=== PATIENT | male | born 1945 | race Caucasian/White ===

== ENCOUNTER 2016-04-21 18:22 | Inpatient (IN) | payer OTHER, MEDICARE ==
[~2016-04-21] VITALS: Ht 180.3 cm; Wt 108.4 kg
[~2016-04-21 18:22] MED LIST: ADVAI250I PO; ALBU8I INH; ATOR20TA42 PO; FLON0.053; LEVEMIR SQ; LORA-474 PO; LOSA25TA31 PO; NORV10TA PO; NOVOINJ3 SQ/IV; PERC5TAB12 PO; PROM25TA5 PO; TAB-TAB PO; TAMS0.4C67 PO; TRAZ100 PO; VENL75TA91 PO; ZOFR4TAB3 SL; ZOLP10TA3 PO
[2016-04-21 18:24] VITALS: BP 123/74; PULSE 110; RESP 14; TEMP 98; O2SAT 97
[2016-04-21 18:50] VITALS: O2SAT 98
--- NOTE | 2016-04-21 18:50 | PD ---
HPI Chief Complaint: Respiratory Symptoms Time Seen by Provider: 18:40 Travel History International Travel<30 days: No Contact w/Intl Traveler<30days: No Traveled to known affect area: No History of Present Illness HPI 70-year-old male with history of lymphoma, COPD, chronic back pain who presents after being sent by his oncologist for bilateral pulmonary embolism. Today the patient underwent CT imaging of the thorax, soft tissue neck, abdomen and pelvis ordered by Dr. Kavon Ramos. CT of the thorax revealed bilateral pulmonary embolism and his oncologist advised that he come here for further evaluation. The patient is denying any chest pain, shortness of breath, proptosis, cough and congestion, abdominal pain, fevers or chills, calf swelling , leg swelling or pain. He has never had DVT or PE in the past. No other complaints. His primary care physician is . [facility] Past Medical History Anxiety: Yes Depression: Yes Heart Rhythm Problems: Yes (TACHYCARDIA) Cardiac Catheterization: Yes Cardiovascular Problems: Yes High Cholesterol: Yes COPD: Yes Diabetes: Yes Diminished Hearing: Yes (L EAR LOSS) Genitourinary: Yes (ENLARGED PROSTATE ) Hiatal Hernia: Yes Hypertension: Yes Musculoskeletal: Yes (CHRONIC BACK PAIN ) Reproductive: Yes Respiratory: Yes (COPD) Triglycerides - High: Yes Past Surgical History Other Surgery: Yes (HEMANGIOMA REMOVAL CHILD) Social History Alcohol Use: Yes (OCC) Tobacco Use: No Substance Use: No Allergies-Medications (Allergen,Severity, Reaction): Coded Allergies: No Known Allergies (Verified , 04/21/16) Reported Meds & Prescriptions Reported Meds & Active Scripts Active Reported Glimepiride 1 Mg Tab 1 Mg PO DAILY Take with breakfast or first main meal Losartan (Losartan Potassium) 50 Mg Tab 50 Mg PO DAILY Janumet (Sitagliptin-Metformin) 50-1,000 Mg Tab 1 Tab PO BID Take with meals Atorvastatin (Atorvastatin Calcium) 20 Mg Tab 20 Mg PO HS Trazodone (Trazodone HCl) 100 Mg Tab 300 Mg PO HS Effexor (Venlafaxine HCl) 75 Mg Tab 75 Mg PO TID Novolog Flexpen Inj (Insulin Aspart) 300 Unit/3 Ml Pen SQ TIDAC Tramadol (Tramadol HCl) 50 Mg Tab 50 Mg PO Q8H PRN Alprazolam 2 Mg Tab 2 Mg PO TID Review of Systems Except as stated in HPI: all other systems reviewed are Neg Physical Exam Narrative GENERAL: Well-nourished male in no acute distress. Mildly tachycardic. SKIN: Warm and dry. HEAD: Atraumatic. Normocephalic. EYES: Pupils equal and round. No scleral icterus. No injection or drainage. ENT: No nasal bleeding or discharge. Mucous membranes pink and moist. NECK: Trachea midline. No JVD. CARDIOVASCULAR: Regular rate and rhythm. No murmur appreciated. RESPIRATORY: No accessory muscle use. Clear to auscultation. Breath sounds equal bilaterally. GASTROINTESTINAL: Abdomen soft, non-tender, nondistended. Hepatic and splenic margins not palpable. MUSCULOSKELETAL: No obvious deformities. No edema. Calf or thigh tenderness. NEUROLOGICAL: Awake and alert. No obvious cranial nerve deficits. Motor grossly within normal limits. Normal speech. PSYCHIATRIC: Appropriate mood and affect; insight and judgment normal. Data Data Last Documented VS Vital Signs Date Time Temp Pulse Resp B/P Pulse Ox O2 Delivery O2 Flow Rate FiO2 04/21/16 18:50 98 Room Air 04/21/16 18:45 96 18 04/21/16 18:24 98.0 123/74 Orders Electrocardiogram (04/21/16 18:47) Basic Metabolic Panel (Bmp) (04/21/16 18:47) Complete Blood Count With Diff (04/21/16 18:47) Magnesium (Mg) (04/21/16 18:47) Prothrombin Time / Inr (Pt) (04/21/16 18:47) Act Partial Throm Time (Ptt) (04/21/16 18:47) Ecg Monitoring (04/21/16 18:47) Bilateral Bp Monitoring (04/21/16 18:47) Iv Access Insert/Monitor (04/21/16 18:47) Oximetry (04/21/16 18:47) Heparin Infusion [id number].Q1H (04/21/16 19:03) Heparin Inj (Heparin Inj) (04/21/16 19:15) Heparin Inj (Heparin Inj) (04/22/16 01:15) Heparin Inj (Heparin Inj) (04/22/16 01:15) Heparin-D5w Inj (Heparin-D5w Inj) (04/21/16 19:15) Act Partial Throm Time (Ptt) (04/21/16 19:03) Cbc No Diff, Includes Plts (04/21/16 19:03) Cbc No Diff, Includes Plts (04/24/16 06:00) Act Partial Throm Time (Ptt) (04/22/16 02:03) Occult Blood (Hemoccult) Stool (04/21/16 19:03) Admit Order (Ed Use Only) (04/21/16 19:27) Labs Laboratory Tests Test 04/21/16 18:59 White Blood Count 10.1 TH/MM3 Red Blood Count 3.95 MIL/MM3 Hemoglobin 12.4 GM/DL Hematocrit 36.6 % Mean Corpuscular Volume 92.6 FL Mean Corpuscular Hemoglobin 31.3 PG Mean Corpuscular Hemoglobin 33.8 % Concent Red Cell Distribution Width 13.7 % Platelet Count 160 TH/MM3 Mean Platelet Volume 7.7 FL Neutrophils (%) (Auto) 76.2 % Lymphocytes (%) (Auto) 14.6 % Monocytes (%) (Auto) 5.4 % Eosinophils (%) (Auto) 3.4 % Basophils (%) (Auto) 0.4 % Neutrophils # (Auto) 7.7 TH/MM3 Lymphocytes # (Auto) 1.5 TH/MM3 Monocytes # (Auto) 0.6 TH/MM3 Eosinophils # (Auto) 0.3 TH/MM3 Basophils # (Auto) 0.0 TH/MM3 CBC Comment DIFF FINAL Differential Comment Prothrombin Time 12.8 SEC Prothromb Time International 1.2 RATIO Ratio Activated Partial 24.4 SEC Thromboplast Time Sodium Level 136 MEQ/L Potassium Level 3.6 MEQ/L Chloride Level 98 MEQ/L Carbon Dioxide Level 29.3 MEQ/L Anion Gap 9 MEQ/L Blood Urea Nitrogen 8 MG/DL Creatinine 1.01 MG/DL Estimat Glomerular Filtration 73 ML/MIN Rate Random Glucose 175 MG/DL Calcium Level 8.2 MG/DL Magnesium Level 1.6 MG/DL [facility] Medical Decision Making Medical Screen Exam Complete: Yes Emergency Medical Condition: Yes Medical Record Reviewed: Yes Differential Diagnosis Pulmonary embolism, lymphoma, COPD Narrative Course 70-year-old male was sent here because CT of the thorax incidentally reveals bilateral pulmonary embolism. CT of the thorax reveals that there are filling defects in the left lower lobe pulmonary arteries, right middle lobe pulmonary arteries and right lower lobe pulmonary arteries. He denies any recent bleeding , hematochezia, hemoptysis, melena, hematemesis. Therefore the patient will be started on heparin, he was given a loading dose 80 units per kilogram. He will be admitted to the hospitalist group. Discussed with Dr. Hassan who agrees to admit the patient. Procedures EKG Prior to Arrival: Yes Diagnosis Primary Impression: Pulmonary embolism Qualified Code: I26.99 - Other pulmonary embolism without acute cor pulmonale , unspecified chronicity Admitting Information Admitting Physician Requests: Admit Homero Purvis Apr 21, 2016 18:50
[2016-04-21] MEDS ORDERED: HEPARIN SODIUM - IV 10,000 UNITS/10 ML VIAL IV ONE (19:15)
[2016-04-21] MEDS ORDERED: JANU50TA8 PO (19:21)
[2016-04-21] MEDS ORDERED: NOVOINJ3 SQ (19:21)
[2016-04-21] MEDS ORDERED: TRAZ100T4 PO (19:21)
[2016-04-21] MEDS ORDERED: ATOR20TA15 PO (19:21)
[2016-04-21] MEDS ORDERED: ALPR2TAB3 PO (19:21)
[2016-04-21] MEDS ORDERED: LOSA50TA PO (19:21)
[2016-04-21] MEDS ORDERED: VENL75TA PO (19:21)
[2016-04-21] MEDS ORDERED: TRAM50TA PO (19:21)
[2016-04-21] MEDS ORDERED: GLIM1TAB PO (19:21)
[2016-04-21 19:33] LABS: AUTOMATED NEUTROPHIL # 7.7 TH/MM3 (1.8-7.7); BASOPHIL % 0.4 % (0.0-2.0); EOSINOPHIL # 0.3 TH/MM3 (0-0.4); EOSINOPHIL % 3.4 % (0.0-4.0); HEMATOCRIT 36.6 % (39.0-51.0); HEMO FLAGS DIFF FINAL; LYMPH % 14.6 % (9.0-44.0); LYMPHOCYTE # 1.5 TH/MM3 (1.0-4.8); MEAN CELL VOLUME 92.6 FL (80.0-100.0); MEAN CORPUSCULAR HEMOGLOBIN 31.3 PG (27.0-34.0); MEAN CORPUSCULAR HGB CONC 33.8 % (32.0-36.0); MONO % 5.4 % (0.0-8.0); NEUT % 76.2 % (16.0-70.0); PLATELET COUNT 160 TH/MM3 (150-450); RED BLOOD COUNT 3.95 MIL/MM3 (4.50-5.90); RED CELL DISTRIBUTION WIDTH 13.7 % (11.6-17.2); WHITE BLOOD COUNT 10.1 TH/MM3 (4.0-11.0)
[2016-04-21 19:38] LABS: APTT (PATIENT) 24.4 SEC (24.3-30.1); INTERNATIONAL NORMALIZED RATIO 1.2 RATIO; PROTHROMBIN TIME - PATIENT 12.8 SEC (9.8-11.6)
[2016-04-21] MEDS ORDERED: ONDANSETRON HCL 4 MG/2 ML VIAL IVP PRN (19:45)
[2016-04-21] MEDS ORDERED: SODIUM CHLORIDE 0.9% FLUSH 5 ML FLUSH FLUSH PRN (19:45)
[2016-04-21] MEDS ORDERED: NALOXONE HCL 0.4 MG/ML AMP IV PRN (19:45)
[2016-04-21] MEDS ORDERED: traMADol HCL 50 MG TAB PO PRN (19:45)
[2016-04-21 19:52] LABS: BICARBONATE 29.3 MEQ/L (21.0-32.0); MAGNESIUM 1.6 MG/DL (1.5-2.5); POTASSIUM 3.6 MEQ/L (3.5-5.1)
[2016-04-21] MEDS ORDERED: DEXTROSE 50% IN WATER 50 ML VIAL(D50) IV PUSH PRN (20:00)
[2016-04-21] MEDS ORDERED: GLUCAGON 1 MG/ML VIAL OTHER PRN (20:00)
[2016-04-21] MEDS: HEPARIN-D5W INJ 250 ML IV SCH (20:25)
[2016-04-21] MEDS: SODIUM CHLORIDE 0.9% FLUSH 5 ML FLUSH FLUSH SCH (21:00)
[2016-04-21] MEDS: INSULIN ASPART SUPPLEMENTAL SCALE SQ SCH (21:27)
[2016-04-21] MEDS: traZODone HCL 100 MG TAB PO SCH (21:27)
[2016-04-21] MEDS: ATORVASTATIN 20 MG TAB PO SCH (21:27)
[2016-04-21 21:29] VITALS: BP 154/74; PULSE 80; RESP 16; O2SAT 98
[2016-04-21 22:00] VITALS: BP 132/78; PULSE 94; RESP 18; TEMP 97; O2SAT 96
--- NOTE | 2016-04-21 22:58 | HHI.HP ---
[facility] Service [facility] Primary Care Physician Lemuel Friedman MD Admission Diagnosis Bilateral pulmonary embolism Diagnoses: (1) Pulmonary embolism (2) Non-Hodgkin lymphoma (3) Anemia (4) Type 2 diabetes mellitus (5) Diarrhea Chief Complaint: abnormal chest CT; bilateral PEs Travel History International Travel<30 Days: No Contact w/Intl Traveler <30 Da: No Traveled to Known Affected Are: No History of Present Illness Mr. Spencer is a 70-year-old male patient of Dr. Ramos, oncologist, who has a a history of non-Hodgkins B-cell lymphoma, COPD, chronic back pain, and diabetes mellitus who presented to the emergency room on 04/21/[address] performed by his oncologist as an outpatient which revealed bilateral pulmonary embolism. The patient is seen in his hospital room. He states he had a CT of his chest performed at [place] [facility] to look follow-up on lymphoma and the radiologist from [place] called back and told him to come to the emergency room because of the blood clots in his lungs. Patient denies any chest pain, shortness of breath, palpitations, syncope, dizziness, abdominal pain, melena, hematochezia, hematuria, dysuria but complained of diarrhea for the past few weeks occurring about 3-4 times per day. He was hospitalized recently at [facility]. He states this was about a month ago after a fall at home in which she was down on the ground for at least 3 hours. His last chemotherapy treatment was in January and his last dose of radiation was in the beginning of February. He denies any history of DVT , CVA, seizure, CAD, CHF, liver or kidney problems. He denies thyroid dysfunction. 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 Camara) and chemotherapy Anxiety Depression Hyperlipidemia COPD Type 2 diabetes mellitus Left ear hearing loss Benign prostatic hypertrophy Hypertension Chronic back pain disabled > 15 years ago because of this COPD Hypertriglyceridemia Radiation treatment to right groin as a child for hemangioma . Past Surgical History Hemangioma removal as a child- right groin 1947 Sinus surgery 1994 Biopsy in 2015 Port placement 2014 Colonoscopy 2012 . Reported Medications Reported Meds & Active Scripts Active Reported Glimepiride 1 Mg Tab 1 Mg PO DAILY Take with breakfast or first main meal Losartan (Losartan Potassium) 50 Mg Tab 50 Mg PO DAILY Janumet (Sitagliptin-Metformin) 50-1,000 Mg Tab 1 Tab PO BID Take with meals Atorvastatin (Atorvastatin Calcium) 20 Mg Tab 20 Mg PO HS Trazodone (Trazodone HCl) 100 Mg Tab 300 Mg PO HS Effexor (Venlafaxine HCl) 75 Mg Tab 75 Mg PO TID Novolog Flexpen Inj (Insulin Aspart) 300 Unit/3 Ml Pen SQ TIDAC Tramadol (Tramadol HCl) 50 Mg Tab 50 Mg PO Q8H PRN Alprazolam 2 Mg Tab 2 Mg PO TID . Allergies: Coded Allergies: No Known Allergies (Verified , 04/21/16) Active Ordered Medications Current Medications Heparin Sodium (Porcine) (Heparin Inj) 8,000 units ONCE ONCE IV Last administered on 04/21/16t 20:24; Start 04/21/16 at 19:15; Stop 04/21/16 at 19:16; Status DC Heparin Sodium (Porcine) (Heparin Inj) 5,000 units UNSCH PRN IV APTT LESS THAN 25; Start 04/22/16 at 01:15 Heparin Sodium (Porcine) 2500 units 2,500 units UNSCH PRN IV APTT 25 TO 39; Start 04/22/16 at 01:15 Heparin Sodium/ Dextrose (Heparin-D5W Inj) 250 ml @ 0 mls/hr TITRATE IV Last administered on 04/21/16t 20:25; Start 04/21/16 at 19:15 IV Flush (NS Flush) 2 ml UNSCH PRN FLUSH FLUSH AFTER USING IV ACCESS; Start 04/21/16 at 19:45 IV Flush (NS Flush) 2 ml BID FLUSH ; Start 04/21/16 at 21:00 Ondansetron HCl (Zofran Inj) 4 mg Q6H PRN IVP NAUSEA OR VOMITING; Start at 19:45 Naloxone HCl (Narcan Inj) 0.4 mg UNSCH PRN IV SEE LABEL COMMENTS; Start at 19:45 Alprazolam (Xanax) 2 mg TID PO ; Start 04/22/16 at 09:00 Atorvastatin Calcium (Lipitor) 20 mg HS PO Last administered on 04/21/16 21:27 ; Start 04/21/16 at 21:00 Losartan Potassium (Cozaar) 50 mg DAILY PO ; Start 04/22/16 at 09:00 Tramadol HCl (Ultram) 50 mg Q8H PRN PO PAIN SCALE 1 TO 10; Start 04/21/16 at 19: 45 Trazodone HCl (Desyrel) 300 mg HS PO Last administered on 04/21/16 21:27; Start 04/21/16 at 21:00 Venlafaxine HCl (Effexor Xr) 225 mg DAILY PO ; Start 04/22/16 at 09:00 Dextrose (D50w (Vial) Inj) 25 ml UNSCH PRN IV PUSH HYPOGLYCEMIA-SEE COMMENTS; Start 04/21/16 at 20:00 Glucagon (Glucagon Inj) 1 mg UNSCH PRN OTHER HYPOGLYCEMIA-SEE COMMENTS; Start 04/21/16 at 20:00 Insulin Aspart (NovoLOG SUPPLEMENTAL SCALE) 1 ACHS SLIDING SCALE SQ Last administered on 04/21/16 21:27; Start 04/21/16 at 21:00 . Family History Patient was adopted and has no history related to his parents He has 2 children: daughter had asthma as a child; son is alive and healthy . Social History Tobacco: Smoked 1 PPD for 50 years and quit 4 years ago Alcohol: Occasional Illicit Drugs: Denies . Physical Exam Vital Signs Vital Signs Date Time Temp Pulse Resp B/P Pulse Ox O2 Delivery O2 Flow Rate FiO2 04/21/16 22:00 97.0 94 18 132/78 96 04/21/16 21:29 80 16 154/74 98 Room Air 04/21/16 18:50 98 Room Air 04/21/16 18:45 96 18 96 Room Air 04/21/16 18:24 98.0 110 14 123/74 97 Physical Exam GENERAL: This is a pleasant male patient, in no apparent distress. SKIN: No rashes, ecchymoses or lesions. Cool and dry. HEAD: Atraumatic. Normocephalic. EYES: No scleral icterus. No injection or drainage. ENT: Nose without bleeding, purulent drainage. NECK: Trachea midline. No JVD or lymphadenopathy. CARDIOVASCULAR: Regular rate and rhythm without murmurs, gallops, or rubs. RESPIRATORY: Clear to auscultation. Breath sounds equal bilaterally. No wheezes , rales, or rhonchi. GASTROINTESTINAL: Abdomen soft, non-tender, nondistended. No guarding. MUSCULOSKELETAL: Extremities without clubbing, cyanosis, or edema. No calf tenderness. NEUROLOGICAL: Awake and alert. Motor and sensory grossly within normal limits. Normal speech. . Laboratory Laboratory Tests Test 04/21/16 18:59 White Blood Count 10.1 Red Blood Count 3.95 Hemoglobin 12.4 Hematocrit 36.6 Mean Corpuscular Volume 92.6 Mean Corpuscular Hemoglobin 31.3 Mean Corpuscular Hemoglobin 33.8 Concent Red Cell Distribution Width 13.7 Platelet Count 160 Mean Platelet Volume 7.7 Neutrophils (%) (Auto) 76.2 Lymphocytes (%) (Auto) 14.6 Monocytes (%) (Auto) 5.4 Eosinophils (%) (Auto) 3.4 Basophils (%) (Auto) 0.4 Neutrophils # (Auto) 7.7 Lymphocytes # (Auto) 1.5 Monocytes # (Auto) 0.6 Eosinophils # (Auto) 0.3 Basophils # (Auto) 0.0 CBC Comment DIFF FINAL Differential Comment Prothrombin Time 12.8 Prothromb Time International 1.2 Ratio Activated Partial 24.4 Thromboplast Time Sodium Level 136 Potassium Level 3.6 Chloride Level 98 Carbon Dioxide Level 29.3 Anion Gap 9 Blood Urea Nitrogen 8 Creatinine 1.01 Estimat Glomerular Filtration 73 Rate Random Glucose 175 Calcium Level 8.2 Magnesium Level 1.6 Result Diagram: 04/21/16 1853 04/21/161858 Assessment and Plan Problem List: (1) Pulmonary embolism ICD Code: I26.99 Status: Acute (2) Non-Hodgkin lymphoma ICD Code: C85.90 Status: Chronic (3) Anemia ICD Code: D64.9 Status: Acute (4) Type 2 diabetes mellitus ICD Code: E11.9 Status: Chronic (5) Diarrhea ICD Code: R19.7 Status: Acute Assessment and Plan Mr. Spencer is a 70-year-old male patient of Dr. Ramos, oncologist, who has a a history of non-Hodgkins B-cell lymphoma, COPD, chronic back pain, and diabetes mellitus who presented to the emergency room on 04/21/[address] performed by his oncologist as an outpatient which revealed bilateral pulmonary embolism. Bilateral pulmonary embolism - Started on heparin drip - Continuous cardiac telemetry - Check vital signs every 4 hours - consult oncology, Dr. Ramos Mild Anemia - Admission hemoglobin 12.4 somewhat lower when compared to prior labs - Repeat CBC in a.m. and follow results Type 2 diabetes mellitus - Hold Janumet for now for renal protection in case contrast imaging studies needed - Hold glimepiride for now will manage with sliding scale insulin until glucose trends established - Accu-Cheks before meals and at bedtime with low-dose NovoLog sliding scale coverage - Treatment of hypoglycemia protocol ordered - Follow trends and blood glucose measurements and adjust treatment accordingly Diarrhea with hospitalization one month ago; antibiotic use uncertain - check for c. difficile DVT prophylaxis - Currently on heparin drip Written by Caitlin Garcia, acting as scribe for Dr. Hassan on 04/21/16 at 22:58. All or portions of this note were transcribed by scribe [Caitlin Garcia]. I, Dr. Arslan Hassan personally performed the history, physical exam, and medical decision making; and confirmed the accuracy of the information in the transcribed note. Authenticated by Dr. Arslan Hassan on 04/21/16 at 9580 . Discussed Condition With ER physician, RN, and patient . Physician Certification 2 Midnight Certification Type: Admission for Inpatient Services Order for Inpatient Services The services are ordered in accordance with Medicare regulations or non- Medicare payer requirements, as applicable. In the case of services not specified as inpatient-only, they are appropriately provided as inpatient services in accordance with the 2-midnight benchmark. Estimated LOS (days): 3 days is the estimated time the patient will need to remain in the hospital, assuming treatment plan goals are met and no additional complications. Post-Hospital Plan: Not yet determined Problem Qualifiers (1) Pulmonary embolism: Qualified Code: I26.99 - Other pulmonary embolism without acute cor pulmonale, unspecified chronicity (2) Non-Hodgkin lymphoma: (3) Anemia: Qualified Code: D64.9 - Anemia, unspecified type (4) Type 2 diabetes mellitus: Caitlin Garcia Apr 21, 2016 22:58 Arslan Hassan MD Apr 22, 2016 06:47
[2016-04-21 23:58] VITALS: PULSE 74
[2016-04-22] MEDS ORDERED: HEPARIN SODIUM - IV 10,000 UNITS/10 ML VIAL IV PRN ×2 (01:15)
[2016-04-22 02:54] LABS: APTT (PATIENT) 148.7 SEC (24.3-30.1)
[2016-04-22 04:00] VITALS: BP 123/71; PULSE 77; RESP 16; TEMP 96.5; O2SAT 95
[2016-04-22 05:33] LABS: AUTOMATED NEUTROPHIL # 3.9 TH/MM3 (1.8-7.7); BASOPHIL # 0.1 TH/MM3 (0-0.2); BASOPHIL % 0.8 % (0.0-2.0); EOSINOPHIL # 0.4 TH/MM3 (0-0.4); EOSINOPHIL % 5.4 % (0.0-4.0); HEMATOCRIT 34.4 % (39.0-51.0); HEMO FLAGS DIFF FINAL; LYMPH % 26.9 % (9.0-44.0); LYMPHOCYTE # 1.8 TH/MM3 (1.0-4.8); MEAN CELL VOLUME 92.6 FL (80.0-100.0); MEAN CORPUSCULAR HEMOGLOBIN 32.4 PG (27.0-34.0); MONO % 7.7 % (0.0-8.0); NEUT % 59.2 % (16.0-70.0); PLATELET COUNT 155 TH/MM3 (150-450); RED BLOOD COUNT 3.72 MIL/MM3 (4.50-5.90); WHITE BLOOD COUNT 6.6 TH/MM3 (4.0-11.0)
[2016-04-22 05:51] LABS: BICARBONATE 30.2 MEQ/L (21.0-32.0); POTASSIUM 3.3 MEQ/L (3.5-5.1)
[2016-04-22] MEDS: INSULIN ASPART SUPPLEMENTAL SCALE SQ SCH ×4 (06:02→20:30)
[2016-04-22 07:55] LABS: APTT (PATIENT) 78.4 SEC (24.3-30.1)
[2016-04-22 08:00] VITALS: BP 111/69; PULSE 80; RESP 20; TEMP 97.5; O2SAT 94
[2016-04-22] MEDS: LOSARTAN 50 MG TAB PO SCH (08:11)
[2016-04-22] MEDS: ALPRAZolam 1 MG TAB PO SCH ×3 (08:12→18:18)
[2016-04-22] MEDS: SODIUM CHLORIDE 0.9% FLUSH 5 ML FLUSH FLUSH SCH ×2 (08:12→19:34)
[2016-04-22 08:35] VITALS: PULSE 76
[2016-04-22 09:33] LABS: APTT (PATIENT) 33.6 SEC (24.3-30.1)
[2016-04-22] MEDS: VENLAFAXINE HCL XR 75 MG CAP PO SCH (11:42)
[2016-04-22] MEDS ORDERED: POTASSIUM CHLORIDE 20 MEQ CONTROLLED RELEASE TAB PO ONE (11:45)
[2016-04-22 12:00] VITALS: BP 123/74; PULSE 80; RESP 20; TEMP 96.9; O2SAT 96
[2016-04-22 16:00] VITALS: BP 127/71; PULSE 84; RESP 20; TEMP 98.1; O2SAT 98
[2016-04-22] MEDS: HEPARIN-D5W INJ 250 ML IV SCH (16:11)
--- NOTE | 2016-04-22 16:58 | HHI.PR ---
Subjective Remarks Patient resting in bed comfortably, follow up on non-Hodgkin lymphoma came with bilateral PE Afebrile, no chest Objective Vitals Vital Signs Date Time Temp Pulse Resp B/P Pulse Ox O2 Delivery O2 Flow Rate FiO2 04/22/16 16:00 98.1 84 20 127/71 98 04/22/16 12:00 96.9 80 20 123/74 96 04/22/16 08:35 76 04/22/16 08:00 97.5 80 20 111/69 94 04/22/16 04:00 96.5 77 16 123/71 95 04/21/16 23:58 74 04/21/16 22:00 97.0 94 18 132/78 96 04/21/16 21:29 80 16 154/74 98 Room Air 04/21/16 18:50 98 Room Air 04/21/16 18:45 96 18 96 Room Air 04/21/16 18:24 98.0 110 14 123/74 97 I/O 04/21/16 04/21/16 04/21/16 04/22/16 04/22/16 04/22/16 07:00 15:00 23:00 07:00 15:00 23:00 Intake Total 589 ml Balance 589 ml Intake Oral 480 ml IV Total 109 ml # Voids 1 2 1 # Bowel Movements 1 Result Diagram: 04/22/1641904/22/16419 Objective Remarks GENERAL: This is a well-nourished, well-developed patient, in no apparent distress. SKIN: No rashes, warm and dry HEAD: Atraumatic. Normocephalic. EYES: Pupils equal round and reactive. Extraocular motions intact. No scleral icterus. ENT: Nose without bleeding, or drainage, Airway patent. NECK: Trachea midline. Supple CARDIOVASCULAR: Regular rate and rhythm without murmurs, gallops, or rubs. RESPIRATORY: Fair air entry bilaterally. No wheezes, rales, or rhonchi. GASTROINTESTINAL: Abdomen soft, non-tender, nondistended. Positive bowel sounds MUSCULOSKELETAL: Extremities without clubbing, cyanosis, or edema. Pedal pulses appreciated NEUROLOGICAL: Awake and alert. Moves all extremity. Normal speech.no focal neurological deficit A/P Problem List: (1) Pulmonary embolism ICD Code: I26.99 Status: Acute (2) Non-Hodgkin lymphoma ICD Code: C85.90 Status: Chronic (3) Anemia ICD Code: D64.9 Status: Acute (4) Type 2 diabetes mellitus ICD Code: E11.9 Status: Chronic (5) Diarrhea ICD Code: R19.7 Status: Acute Assessment and Plan Mr. Spencer is a 70-year-old male patient of Dr. Ramos, oncologist, who has a a history of non-Hodgkins B-cell lymphoma, COPD, chronic back pain, and diabetes mellitus who presented to the emergency room on 04/21/[address] performed by his oncologist as an outpatient which revealed bilateral pulmonary embolism. Bilateral pulmonary embolism - heparin drip - Continuous cardiac telemetry - vital signs every 4 hours - consult oncology, Dr. Ramos Hypokalemia: Replace and repeat level in the Mild Anemia - Admission hemoglobin 12.4 somewhat lower when compared to prior labs - Repeat is stable at 12.1 Type 2 diabetes mellitus - Hold Janumet for now for renal protection in case contrast imaging studies needed - Hold glimepiride for now will manage with sliding scale insulin until glucose trends established - Accu-Cheks before meals and at bedtime with low-dose NovoLog sliding scale coverage - Treatment of hypoglycemia protocol ordered - Follow trends and blood glucose measurements and adjust treatment accordingly Diarrhea with hospitalization one month ago; antibiotic use uncertain -Stool for c. difficile pending DVT prophylaxis - Currently on heparin drip Problem Qualifiers (1) Pulmonary embolism: Qualified Code: I26.99 - Other pulmonary embolism without acute cor pulmonale, unspecified chronicity (2) Non-Hodgkin lymphoma: (3) Anemia: Qualified Code: D64.9 - Anemia, unspecified type (4) Type 2 diabetes mellitus: Lawanda Allen MD Apr 22, 2016 16:58
[2016-04-22 18:38] LABS: APTT (PATIENT) 112.6 SEC (24.3-30.1)
--- NOTE | 2016-04-22 18:40 | EKG ---
Date Performed: 04/21/2016 Time Performed: 19:16:52 PTAGE: 70 years EKG: Sinus rhythm NORMAL ECG PREVIOUS TRACING : 05/07/2014 17.07 DOCTOR: Daniel Abbott Interpretating Date/Time 04/22/2016 18:36:59
[2016-04-22] MEDS: traZODone HCL 100 MG TAB PO SCH (19:33)
[2016-04-22] MEDS: ATORVASTATIN 20 MG TAB PO SCH (19:33)
[2016-04-22 20:00] VITALS: BP 122/76; PULSE 70; PULSE 82; RESP 16; TEMP 96.6; O2SAT 94
[2016-04-22 21:32] LABS: APTT (PATIENT) 74.2 SEC (24.3-30.1)
[2016-04-23] VITALS (8 sets, daily range): BP systolic 102–126; BP diastolic 65–76; PULSE 61–90; RESP 16–18; TEMP 96–98.2; O2SAT 93–96
[2016-04-23 02:44] LABS: APTT (PATIENT) 103.1 SEC (24.3-30.1)
[2016-04-23 05:22] LABS: APTT (PATIENT) 76.5 SEC (24.3-30.1)
[2016-04-23 05:41] LABS: BICARBONATE 29.3 MEQ/L (21.0-32.0); POTASSIUM 3.8 MEQ/L (3.5-5.1)
--- NOTE | 2016-04-23 06:39 | MB ---
cc: ESTESGIDEON DATE OF CONSULTATION 04/22/2016 DATE OF 1945 REASON FOR CONSULTATION Patient with a history of large B-cell lymphoma who presents who was admitted to the hospital after he was found to have pulmonary emboli. CHIEF COMPLAINT "I am doing okay." HISTORY OF PRESENT ILLNESS Mr. 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 He was found to have a large mass in his right neck. He had PET/CT scan which revealed a highly metabolic lesion. Fine-needle aspiration biopsy confirmed diffuse large B-cell lymphoma. The mass was in submandibular space abutting the hyoid cartilage. The patient subsequently received chemotherapy and achieved remission. He recently transferred his care to our oncology clinic. A CT scan of the chest, abdomen and pelvis was ordered to restage his disease. The CT of the chest revealed a filling defect in the left lower pulmonary artery, right middle lobe pulmonary artery and right lower lobe pulmonary arteries. Thus there were pulmonary emboli bilaterally. These results were reported after hours and the patient was told to go to the emergency department. He was subsequently admitted to the hospital. The patient was started on a heparin drip. He does not report any chest pain. No shortness of breath. His oxygen saturations have been in the low to mid 90s without any supplemental oxygen. He is not tachycardiac. He denies any heart palpitations. He does not have any lower extremity edema. REVIEW OF SYSTEMS A comprehensive 14-point review of systems was completed which was negative except as described in the HPI. PAST MEDICAL HISTORY 1. Diffuse large B-cell lymphoma status post chemotherapy. 2. Hyperlipidemia. 3. COPD. 4. Diabetes type 2 5. BPH. 6. Hypertension. PAST SURGICAL HISTORY Hemangioma removal from right groin as a the child, sinus surgery, fine-needle aspiration biopsy in 2014, colonoscopy in 2012. MEDICATIONS 1. Glimepiride 1 mg p.o. daily. 2. Losartan 50 mg one tablet p.o. daily. 3. Janumet 50 x 1000 mg tablet p.o. b.i.d. 4. Atorvastatin 20 mg tablet p.o. q.h.s. 5. Trazodone 100 mg one tablet p.o. q.h.s. 6. Effexor 75 mg one tablet p.o. t.i.d. 7. NovoLog ___ units of 10 subcu t.i.d. 8. Tramadol 50 mg p.o. q.8 hours. 9. Alprazolam 2 mg one tablet p.o. t.i.d. 10. He is currently on heparin drip. ALLERGIES No known drug allergies. FAMILY HISTORY Reviewed and was noncontributory to this admission. SOCIAL HISTORY He is an ex-smoker and has 50 pack-year smoking history. He quit 4 years ago he occasionally drinks alcohol. No illicit drug use. PHYSICAL EXAMINATION VITAL SIGNS: Blood pressure is 127/71, pulse is in the 80s, temperature is 98, respiratory rate is 16, pulse ox shows oxygen saturation of 98% on room air. GENERAL: A well-developed, well-nourished male who is obese, in no apparent distress. HEENT: Pupils are equal, round, reactive to light. EOMI. No oral thrush. NECK: Supple. No JVD, no bruits, no lymphadenopathy. CHEST: Clear to auscultation bilaterally. CARDIAC: S1, S2. Regular rate and rhythm. ABDOMEN: Soft, nontender, nondistended. Bowel sounds are present. EXTREMITIES: Without any edema, erythema or cyanosis. SKIN: Without any petechiae, lesion or bruises. NEURO: No focal deficits. PSYCHIATRIC: Mood and affect is appropriate. LABORATORY DATA WBC is 6.6, hemoglobin 12.1, platelet count is 155. Creatinine is 0.86, calcium is 8.6, sodium 141, potassium 3.3. IMAGING STUDIES Reviewed in the EMR and discussed above in HPI. ASSESSMENT AND PLAN This is a 70-year-old male who has a past medical history of diffuse large B-cell lymphoma which was treated with chemotherapy and radiation who is currently in remission. He had restaging CT scans which revealed bilateral pulmonary emboli. I have been consulted to make further recommendations regarding anticoagulation in this patient. 1. Bilateral pulmonary emboli. They appear to be unprovoked. He does not have any findings of recurrent disease. He is currently on heparin. We will transition him to Xarelto. We will have to ask Case Management to determine whether this patient can remain on Xarelto after discharge. If her insurance company does not allow Xarelto, then will consider Coumadin. I will also obtain a Doppler ultrasound of bilateral lower extremities to assess for any DVT. This will obviously not change our management. The patient can be discharged home once we have determined that he can remain on Xarelto. Otherwise we will have to start him on Coumadin and in that case we will continue to bridge him with heparin until his INR is above 2 for at least 48 hours. 2. Diffuse large B-cell lymphoma currently in remission. There is no evidence of disease. 3. History of COPD and tobacco abuse. 4. History of diabetes. Thank you for allowing me to participate in the care of this patient. I will continue to follow this patient along. MD NIGEL Mujica/CHATA /12:08 AM /6:18 AM MTDD
[2016-04-23] MEDS: INSULIN ASPART SUPPLEMENTAL SCALE SQ SCH ×4 (07:00→21:27)
[2016-04-23] MEDS: VENLAFAXINE HCL XR 75 MG CAP PO SCH (09:00)
--- NOTE | 2016-04-23 09:10 | RADRPT ---
EXAM DATE/TIME: 04/23/2016 08:37 [place] COMPARISON: No previous studies available for comparison. EXTERNAL COMPARISON : [facility], [facility]AX, W CONTRAST, April 21, 2016 INDICATIONS : Pulmonary embolism. MEDICAL HISTORY : Chronic obstructive pulmonary disease. Hypercholesterolemia. Hypertension. Dyspnea. Diabetes. Non-hod gkin's lymphoma. chemotherapy. radiation therapy. pulmonary embolism. SURGICAL HISTORY : Cardiac catheterization. Hemangioma removed as child. ENCOUNTER: Initial ACUITY: 1 day PAIN SCORE: 0/10 LOCATION: Bilateral legs. TECHNIQUE: Venous ultrasound of the left and right leg was performed from the inguinal ligament to the proximal calf. Real-time, color Doppler and spectral tracing, compression and augmentation techniques were us ed. FINDINGS: RIGHT LEG: There is normal compressibility of the deep venous system from the inguinal region to the proximal ca lf. No echogenic clot is seen in the lumen of the common femoral, femoral, popliteal, and posterior tibial veins. There is a normal response of the venous system to proximal and distal augmentation an d respiration. LEFT LEG: There are abnormal intraluminal echoes and lack of normal compression involving the common femoral ve in distally to the calf veins. Blood flow remains visualized throughout these vessels. CONCLUSION: 1. There is nonocclusive thrombus extending from the left common femoral vein distally into the calf veins. 2. No DVT is identified in the right lower extremity. Fede Cruz MD on April 23, 2016 at 9:07 Board Certified Radiologist. This report was verified electronically.
[2016-04-23] MEDS: LOSARTAN 50 MG TAB PO SCH (09:19)
[2016-04-23] MEDS: RIVAROXABAN 15 MG TAB PO SCH ×2 (09:19→21:20)
[2016-04-23] MEDS: SODIUM CHLORIDE 0.9% FLUSH 5 ML FLUSH FLUSH SCH ×2 (09:19→21:20)
[2016-04-23] MEDS: ALPRAZolam 1 MG TAB PO SCH ×3 (09:19→16:02)
[2016-04-23] MEDS ORDERED: XARE15TA PO (09:56)
--- NOTE | 2016-04-23 11:45 | HHI.FF ---
Face to Face Verification Diagnosis: (1) Anemia (2) Pulmonary embolism (3) Non-Hodgkin lymphoma (4) Type 2 diabetes mellitus Physical Therapy Order: Evaluate and Treat Home Health Nursing Order: Medical education Nursing assessment with vital signs I have seen patient Tj Ballesteros on 04/23/16. My clinical findings support the need for the requested home health care services because: Patient has SOB Med compliance is questionable I certify that my clinical findings support that this patient is homebound because: Hx COPD- exertion dyspnea/weakness Lawanda Allen MD Apr 23, 2016 11:45
[2016-04-23 13:00] LABS: C. DIFF EPI 027 PRESUMPTIVE NEGATIVE (NEGATIVE); C. DIFF TOXIN PCR NEGATIVE (NEGATIVE)
--- NOTE | 2016-04-23 14:13 | HHI.PR ---
Subjective Remarks Doing well no chest pain or short of breath no fever, he was switched to Xarelto per human resources mgr Objective Vitals Vital Signs Date Time Temp Pulse Resp B/P Pulse Ox O2 Delivery O2 Flow Rate FiO2 04/23/16 12:00 96.5 80 18 126/75 95 04/23/16 08:00 96.2 72 18 118/76 93 04/23/16 04:00 97.1 78 16 102/69 94 04/23/16 00:00 96.8 90 18 122/71 95 04/22/16 20:00 82 04/22/16 20:00 96.6 70 16 122/76 94 04/22/16 16:00 98.1 84 20 127/71 98 I/O 04/22/16 04/22/16 04/22/16 04/23/16 04/23/16 04/23/16 07:00 15:00 23:00 07:00 15:00 23:00 Intake Total 589 ml 480 ml 283 ml Balance 589 ml 480 ml 283 ml Intake Oral 480 ml 480 ml IV Total 109 ml 283 ml # Voids 2 1 1 Result Diagram: 04/22/16 0420 04/23/16 0448 Objective Remarks GENERAL: This is a well-nourished, well-developed patient, in no apparent distress. SKIN: No rashes, warm and dry HEAD: Atraumatic. Normocephalic. EYES: Pupils equal round and reactive. Extraocular motions intact. No scleral icterus. ENT: Nose without bleeding, or drainage, Airway patent. NECK: Trachea midline. Supple CARDIOVASCULAR: Regular rate and rhythm without murmurs, gallops, or rubs. RESPIRATORY: Fair air entry bilaterally. No wheezes, rales, or rhonchi. GASTROINTESTINAL: Abdomen soft, non-tender, nondistended. Positive bowel sounds MUSCULOSKELETAL: Extremities without clubbing, cyanosis, or edema. Pedal pulses appreciated NEUROLOGICAL: Awake and alert. Moves all extremity. Normal speech.no focal neurological deficit A/P Problem List: (1) Pulmonary embolism ICD Code: I26.99 Status: Acute (2) Non-Hodgkin lymphoma ICD Code: C85.90 Status: Chronic (3) Anemia ICD Code: D64.9 Status: Acute (4) Type 2 diabetes mellitus ICD Code: E11.9 Status: Chronic (5) Diarrhea ICD Code: R19.7 Status: Acute Assessment and Plan Mr. Spencer is a 70-year-old male patient of Dr. Ramos, oncologist, who has a a history of non-Hodgkins B-cell lymphoma, COPD, chronic back pain, and diabetes mellitus who presented to the emergency room on 04/21/[address] performed by his oncologist as an outpatient which revealed bilateral pulmonary embolism. Bilateral pulmonary embolism - heparin drip switch to Xarelto per human resources mgr Dr. Ramos - Continuous cardiac telemetry - vital signs every 4 hours Hypokalemia: Replace and repeat level in the Mild Anemia - Admission hemoglobin 12.4 somewhat lower when compared to prior labs - Repeat is stable at 12.1 Type 2 diabetes mellitus - Hold Janumet for now for renal protection in case contrast imaging studies needed - Hold glimepiride for now will manage with sliding scale insulin until glucose trends established - Accu-Cheks before meals and at bedtime with low-dose NovoLog sliding scale coverage - Treatment of hypoglycemia protocol ordered - Follow trends and blood glucose measurements and adjust treatment accordingly Diarrhea with hospitalization one month ago; antibiotic use uncertain -Stool for c. difficile pending DVT prophylaxis - s/p heparin drip , now on xarelto Discharge Planning Discharge patient to home Condition on discharge: Improved Healthy heart Diet as tolerated Ad Latoya activity Rx written: Gamal see med rec for rest of medication Follow-up with primary care physician in one week, human resources mgr oncologist as directed Problem Qualifiers (1) Pulmonary embolism: Qualified Code: I26.99 - Other pulmonary embolism without acute cor pulmonale, unspecified chronicity (2) Non-Hodgkin lymphoma: (3) Anemia: Qualified Code: D64.9 - Anemia, unspecified type (4) Type 2 diabetes mellitus: Lawanda Allen MD Apr 23, 2016 14:13
[2016-04-23] MEDS: traZODone HCL 100 MG TAB PO SCH (21:20)
[2016-04-23] MEDS: ATORVASTATIN 20 MG TAB PO SCH (21:20)
--- NOTE | 2016-04-23 23:23 | PD.ONC.PN ---
Subjective Subjective Remarks awake and alert eating breakfast no dyspne/chest pain or hemoptyses Gamal started this MA d/w RN d/w case management Objective Data Date Time Temp Pulse Resp B/P Pulse Ox O2 Delivery O2 Flow Rate FiO2 04/23/16 20:00 98.2 75 17 114/65 95 04/23/16 16:13 61 04/23/16 16:00 96.0 74 18 119/75 96 04/23/16 12:00 96.5 80 18 126/75 95 04/23/16 08:00 96.2 72 18 118/76 93 04/23/16 04:00 97.1 78 16 102/69 94 04/23/16 00:00 96.8 90 18 122/71 95 04/23/16 04/23/16 04/23/16 07:00 15:00 23:00 Intake Total 283 ml 480 ml Balance 283 ml 480 ml Result Diagram: 04/22/16 0420 04/23/16 0448 Laboratory Results Laboratory Tests Test 04/23/16 04/23/16 04/23/16 02:15 04:48 09:40 Activated Partial 103.1 SEC 76.5 SEC Thromboplast Time Sodium Level 142 MEQ/L Potassium Level 3.8 MEQ/L Chloride Level 105 MEQ/L Carbon Dioxide Level 29.3 MEQ/L Anion Gap 8 MEQ/L Blood Urea Nitrogen 8 MG/DL Creatinine 0.90 MG/DL Estimat Glomerular Filtration 84 ML/MIN Rate Random Glucose 134 MG/DL Calcium Level 8.3 MG/DL Stool C. difficile Toxin (PCR) NEGATIVE Stl C. difficile Toxin PRESUMPTIVE Epiderm 027 NEGATIVE Culture Results Microbiology Date/Time Procedure Status Source Growth 04/23/16 09:40 Stool Occult Blood (MARCIANO) - Final Complete Stool Stool HEMOCCULT NEGATIVE Imaging Studies Last 24 hours Impressions Lower Extremity Ultrasound 04/23/16 0000 Signed Impressions: Service Date/Time: April 08:37 - CONCLUSION: 1. There is nonocclusive thrombus extending from the left common femoral vein distally into the calf veins. 2. No DVT is identified in the right lower extremity. Fede Cruz MD Administered Medications Medications (Trade) Dose Ordered Sig/Greg Route PRN Reason Start Time Stop Time Status Last Admin Dose Admin IV Flush (NS Flush) 2 ml BID FLUSH 04/21/16 21:00 04/23/16 21:20 Alprazolam (Xanax) 2 mg TID PO 04/22/16 09:00 04/23/16 16:02 Atorvastatin Calcium (Lipitor) 20 mg HS PO 04/21/16 21:00 04/23/16 21:20 Losartan Potassium (Cozaar) 50 mg DAILY PO 04/22/16 09:00 04/23/16 09:19 Trazodone HCl (Desyrel) 300 mg HS PO 04/21/16 21:00 04/23/16 21:20 Venlafaxine HCl (Effexor Xr) 225 mg DAILY PO 04/22/16 09:00 04/23/16 09:00 Rivaroxaban (Xarelto) 15 mg BID PO 04/23/16 09:00 04/23/16 21:20 Objective Remarks GENERAL: nad SKIN: Warm and dry. NECK: Supple, trachea midline. No JVD or lymphadenopathy. LYMPHATIC: No adenopathy. CARDIOVASCULAR: Regular rate and rhythm without murmurs. RESPIRATORY: Breath sounds equal bilaterally. No accessory muscle use. GASTROINTESTINAL: Abdomen soft, non-tender, nondistended. EXTREMITIES: No cyanosis, or edema. . Assessment/Plan Problem List: (1) Anemia Status: Acute (2) Pulmonary embolism Status: Acute (3) Non-Hodgkin lymphoma Status: Chronic Assessment 70-year-old male who has a past medical history of diffuse large B-cell lymphoma which was treated with chemotherapy and radiation who is currently in remission. He had restaging CT scans which revealed bilateral pulmonary emboli. 1. Bilateral pulmonary emboli. - Continue Xarelto - d/c heparin - OK to d/c to rehab - f/u outpatient 2. Diffuse large B-cell lymphoma currently in remission. There is no evidence of disease. 3. History of COPD and tobacco abuse. 4. History of diabetes. Problem Qualifiers (1) Anemia: Qualified Code: D64.9 - Anemia, unspecified type (2) Pulmonary embolism: Qualified Code: I26.99 - Other pulmonary embolism without acute cor pulmonale, unspecified chronicity (3) Non-Hodgkin lymphoma: Kavon Ramos MD Apr 23, 2016 23:23
[2016-04-24] VITALS: BP 102/67; PULSE 80; RESP 17; TEMP 96.8; O2SAT 94
[2016-04-24 04:00] VITALS: BP 104/67; PULSE 77; RESP 17; TEMP 96.8; O2SAT 95
[2016-04-24] MEDS: INSULIN ASPART SUPPLEMENTAL SCALE SQ SCH ×3 (05:34→17:26)
[2016-04-24 06:47] LABS: HEMATOCRIT 36.1 % (39.0-51.0); MEAN CELL VOLUME 93.8 FL (80.0-100.0); MEAN CORPUSCULAR HEMOGLOBIN 31.8 PG (27.0-34.0); MEAN CORPUSCULAR HGB CONC 33.9 % (32.0-36.0); PLATELET COUNT 164 TH/MM3 (150-450); RED BLOOD COUNT 3.84 MIL/MM3 (4.50-5.90); RED CELL DISTRIBUTION WIDTH 13.4 % (11.6-17.2); REVIEW FLAG FINAL; WHITE BLOOD COUNT 6.7 TH/MM3 (4.0-11.0)
[2016-04-24 08:00] VITALS: BP 133/90; PULSE 85; RESP 18; TEMP 97.8; O2SAT 95
[2016-04-24 08:16] VITALS: PULSE 84
[2016-04-24] MEDS: RIVAROXABAN 15 MG TAB PO SCH (08:43)
[2016-04-24] MEDS: ALPRAZolam 1 MG TAB PO SCH ×3 (08:43→17:25)
[2016-04-24] MEDS: LOSARTAN 50 MG TAB PO SCH (08:43)
[2016-04-24] MEDS: VENLAFAXINE HCL XR 75 MG CAP PO SCH (08:44)
[2016-04-24] MEDS: SODIUM CHLORIDE 0.9% FLUSH 5 ML FLUSH FLUSH SCH (08:44)
--- NOTE | 2016-04-24 10:11 | HHI.DS ---
Discharge Summary Admission Date Apr 21, 2016 at 19:29 Discharge Date: Apr 24, 2016 Admitting Diagnosis Bilateral pulmonary embolism (1) Pulmonary embolism ICD Code: I26.99 (2) Non-Hodgkin lymphoma ICD Code: C85.90 (3) Anemia ICD Code: D64.9 (4) Type 2 diabetes mellitus ICD Code: E11.9 (5) Diarrhea ICD Code: R19.7 Procedures See below Brief History - From Admission Mr. Spencer is a 70-year-old male patient of Dr. Ramos, oncologist, who has a a history of non-Hodgkins B-cell lymphoma, COPD, chronic back pain, and diabetes mellitus who presented to the emergency room on 04/21/[address] performed by his oncologist as an outpatient which revealed bilateral pulmonary embolism. The patient is seen in his hospital room. He states he had a CT of his chest performed at [facility] to look follow-up on lymphoma and the radiologist from [place] called back and told him to come to the emergency room because of the blood clots in his lungs. Patient denies any chest pain, shortness of breath, palpitations, syncope, dizziness, abdominal pain, melena, hematochezia, hematuria, dysuria but complained of diarrhea for the past few weeks occurring about 3-4 times per day. He was hospitalized recently at [facility]. He states this was about a month ago after a fall at home in which she was down on the ground for at least 3 hours. His last chemotherapy treatment was in January and his last dose of radiation was in the beginning of February. He denies any history of DVT , CVA, seizure, CAD, CHF, liver or kidney problems. He denies thyroid dysfunction. CBC/BMP: 04/24/16 0528 04/23/16 0448 Significant Findings Laboratory Tests Test 04/21/16 04/22/16 04/22/16 04/22/16 18:59 01:45 04:20 09:12 Red Blood Count 3.95 MIL/MM3 3.72 MIL/MM3 (4.50-5.90) (4.50-5.90) Hemoglobin 12.4 GM/DL 12.1 GM/DL (13.0-17.0) (13.0-17.0) Hematocrit 36.6 % 34.4 % (39.0-51.0) (39.0-51.0) Neutrophils (%) (Auto) 76.2 % (16.0-70.0) Prothrombin Time 12.8 SEC (9.8-11.6) Estimat Glomerular Filtration 73 ML/MIN (>89) 88 ML/MIN (>89) Rate Random Glucose 175 MG/DL 168 MG/DL (74-106) (74-106) Calcium Level 8.2 MG/DL (8.5-10.1) Activated Partial 148.7 SEC 78.4 SEC 33.6 SEC Thromboplast Time (24.3-30.1) (24.3-30.1) (24.3-30.1) Eosinophils (%) (Auto) 5.4 % (0.0-4.0) Potassium Level 3.3 MEQ/L (3.5-5.1) Test 04/22/16 04/22/16 04/23/16 04/23/16 15:47 20:35 02:15 04:48 Activated Partial 112.6 SEC 74.2 SEC 103.1 SEC 76.5 SEC Thromboplast Time (24.3-30.1) (24.3-30.1) (24.3-30.1) (24.3-30.1) Estimat Glomerular Filtration 84 ML/MIN (>89) Rate Random Glucose 134 MG/DL (74-106) Calcium Level 8.3 MG/DL (8.5-10.1) Test 04/24/16 05:28 Red Blood Count 3.84 MIL/MM3 (4.50-5.90) Hemoglobin 12.2 GM/DL (13.0-17.0) Hematocrit 36.1 % (39.0-51.0) PE at Discharge GENERAL: This is a well-nourished, well-developed patient, in no apparent distress. SKIN: No rashes, warm and dry HEAD: Atraumatic. Normocephalic. EYES: Pupils equal round and reactive. Extraocular motions intact. No scleral icterus. ENT: Nose without bleeding, or drainage, Airway patent. NECK: Trachea midline. Supple CARDIOVASCULAR: Regular rate and rhythm without murmurs, gallops, or rubs. RESPIRATORY: Fair air entry bilaterally. No wheezes, rales, or rhonchi. GASTROINTESTINAL: Abdomen soft, non-tender, nondistended. Positive bowel sounds MUSCULOSKELETAL: Extremities without clubbing, cyanosis, or edema. Pedal pulses appreciated NEUROLOGICAL: Awake and alert. Moves all extremity. Normal speech.no focal neurological deficit Hospital Course Mr. Spencer is a 70yearold male patient of Dr. Ramos, oncologist, who has a a history of nonHodgkins Bcell lymphoma, COPD, chronic back pain, and diabetes mellitus who presented to the emergency room on 04/21/[address] performed by his oncologist as an outpatient which revealed bilateral pulmonary embolism. Bilateral pulmonary embolism heparin drip switch to Xarelto per wall insulation sprayer Dr. Ramos Continuous cardiac telemetry vital signs every 4 hours Hypokalemia Replace and repeat level in the Mild Anemia Admission hemoglobin 12.4 somewhat lower when compared to prior labs Repeat is stable at 12.1 Type 2 diabetes mellitus Hold Janumet for now for renal protection in case contrast imaging studies needed Hold glimepiride for now will manage with sliding scale insulin until glucose trends established Accu-Cheks before meals and at bedtime with lowdose NovoLog sliding scale coverage Treatment of hypoglycemia protocol ordered Follow trends and blood glucose measurements and adjust treatment accordingly Diarrhea with hospitalization one month ago; antibiotic use uncertain -Stool for c. difficile is negative Pt Condition on Discharge: Good Discharge Disposition: Disch w/ Home Health Serv Discharge Time: <= 30 minutes Discharge Instructions DIET: Follow Instructions for: Heart Healthy Diet, Diabetic Diet Activities you can perform: Weight Bearing as Veronica Follow up Referrals: Oncology - 1 Week with Kavon Ramos MD New Medications: Rivaroxaban (Xarelto) 15 Mg Tab 15 MG PO BID pe #60 TAB Continued Medications: Atorvastatin (Atorvastatin) 20 Mg Tab 20 MG PO HS Cholesterol Management #30 Ref 0 TAB Glimepiride (Glimepiride) 1 Mg Tab 1 MG PO DAILY Take with breakfast or first main meal Blood Sugar Management #30 Ref 0 TAB Insulin Aspart Inj (Novolog Flexpen Inj) 300 Unit/3 Ml Pen SQ TIDAC SLIDING SCALE #1 Ref 0 PEN Losartan (Losartan) 50 Mg Tab 50 MG PO DAILY Blood Pressure Management #30 Ref 0 TAB Sitagliptin-Metformin (Janumet) 50-1,000 Mg Tab 1 TAB PO BID Take with meals Blood Sugar Management #60 Ref 0 TAB Trazodone (Trazodone) 100 Mg Tab 300 MG PO HS Control Depression #30 Ref 0 TAB Venlafaxine (Effexor) 75 Mg Tab 75 MG PO TID #90 Ref 0 TAB Lawanda Allen MD Apr 24, 2016 10:11
--- NOTE | 2016-04-24 10:37 | HHI.PR ---
Subjective Remarks Resting comfortable in bed no short of breath or chest pain retail account manager working on rehabilitation placement considering patient lives alone and he has difficulty walking, awaiting PT assessment Objective Vitals Vital Signs Date Time Temp Pulse Resp B/P Pulse Ox O2 Delivery O2 Flow Rate FiO2 04/24/16 04:00 96.8 77 17 104/67 95 04/24/16 00:00 96.8 80 17 102/67 94 04/23/16 21:00 86 04/23/16 20:00 98.2 75 17 114/65 95 04/23/16 16:13 61 04/23/16 16:00 96.0 74 18 119/75 96 04/23/16 12:00 96.5 80 18 126/75 95 I/O 04/23/16 04/23/16 04/23/16 04/24/16 04/24/16 04/24/16 07:00 15:00 23:00 07:00 15:00 23:00 Intake Total 283 ml 480 ml 480 ml Balance 283 ml 480 ml 480 ml Intake Oral 480 ml 480 ml IV Total 283 ml # Voids 1 1 # Bowel Movements 1 0 Result Diagram: 04/24/16 0528 04/23/16 0448 Objective Remarks GENERAL: This is a well-nourished, well-developed patient, in no apparent distress. SKIN: No rashes, warm and dry HEAD: Atraumatic. Normocephalic. EYES: Pupils equal round and reactive. Extraocular motions intact. No scleral icterus. ENT: Nose without bleeding, or drainage, Airway patent. NECK: Trachea midline. Supple CARDIOVASCULAR: Regular rate and rhythm without murmurs, gallops, or rubs. RESPIRATORY: Fair air entry bilaterally. No wheezes, rales, or rhonchi. GASTROINTESTINAL: Abdomen soft, non-tender, nondistended. Positive bowel sounds MUSCULOSKELETAL: Extremities without clubbing, cyanosis, or edema. Pedal pulses appreciated NEUROLOGICAL: Awake and alert. Moves all extremity. Normal speech.no focal neurological deficit Procedures See below A/P Problem List: (1) Pulmonary embolism ICD Code: I26.99 Status: Acute (2) Non-Hodgkin lymphoma ICD Code: C85.90 Status: Chronic (3) Anemia ICD Code: D64.9 Status: Acute (4) Type 2 diabetes mellitus ICD Code: E11.9 Status: Chronic (5) Diarrhea ICD Code: R19.7 Status: Acute Assessment and Plan Mr. Spencer is a 70-year-old male patient of Dr. Ramos, oncologist, who has a a history of non-Hodgkins B-cell lymphoma, COPD, chronic back pain, and diabetes mellitus who presented to the emergency room on 04/21/[address] performed by his oncologist as an outpatient which revealed bilateral pulmonary embolism. Bilateral pulmonary embolism - heparin drip switch to Xarelto per club attendant Dr. Ramos - Continuous cardiac telemetry - vital signs every 4 hours Hypokalemia: Replace and repeat level in the Mild Anemia - Admission hemoglobin 12.4 somewhat lower when compared to prior labs - Repeat is stable at 12.1 Type 2 diabetes mellitus - Hold Janumet for now for renal protection in case contrast imaging studies needed - Hold glimepiride for now will manage with sliding scale insulin until glucose trends established - Accu-Cheks before meals and at bedtime with low-dose NovoLog sliding scale coverage - Treatment of hypoglycemia protocol ordered - Follow trends and blood glucose measurements and adjust treatment accordingly Diarrhea with hospitalization one month ago; antibiotic use uncertain -Stool for c. difficile pending DVT prophylaxis - s/p heparin drip , now on xarelto Discharge Planning Home with home health care versus rehabilitation and PT assessment Problem Qualifiers (1) Pulmonary embolism: Qualified Code: I26.99 - Other pulmonary embolism without acute cor pulmonale, unspecified chronicity (2) Non-Hodgkin lymphoma: (3) Anemia: Qualified Code: D64.9 - Anemia, unspecified type (4) Type 2 diabetes mellitus: Lawanda Allen MD Apr 24, 2016 10:37
[2016-04-24 12:00] VITALS: BP 108/65; PULSE 80; RESP 18; TEMP 98.4; O2SAT 96
[2016-04-24 16:00] VITALS: BP 122/72; PULSE 82; RESP 18; TEMP 98.3; O2SAT 96
== END 2016-04-24 19:58 | DRG 176 ==
LOC: NEPE 18:22 → NEDA 19:29 → HOCA 21:57
PROVIDERS: ADMIT Hospitalist; ATTEND Hospitalist
DX: I26.99 Other pulmonary embolism without acute cor pulmonale (principal); C83.30 Diffuse large B-cell lymphoma, unspecified site; J44.9 Chronic obstructive pulmonary disease, unspecified; D64.9 Anemia, unspecified; E11.9 Type 2 diabetes mellitus without complications; F32.9 Major depressive disorder, single episode, unspecified; I10 Essential (primary) hypertension; E87.6 Hypokalemia; G89.29 Other chronic pain; M54.9 Dorsalgia, unspecified; R19.7 Diarrhea, unspecified; Z92.21 Personal history of antineoplastic chemotherapy; Z92.3 Personal history of irradiation; H91.92 Unspecified hearing loss, left ear; F41.9 Anxiety disorder, unspecified; N40.0 Benign prostatic hyperplasia without lower urinary tract symptoms; E78.1 Pure hyperglyceridemia; Z79.84 Long term (current) use of oral hypoglycemic drugs; Z79.4 Long term (current) use of insulin; K44.9 Diaphragmatic hernia without obstruction or gangrene; Z87.891 Personal history of nicotine dependence
CPT/HCPCS: 80048; 82272; 82948; 83735; 85025; 85027; 85610; 85730; 87493; 93005; 93970; J1644; J1815